=== PATIENT | male | born 1945 | race Caucasian/White ===

== ENCOUNTER 2022-01-19 12:07 | Emergency (ER) | payer MEDICARE, SELFPAY ==
[2022-01-19 12:07] VITALS: BP 128/40; PULSE 62; RESP 20; TEMP 36.7; O2SAT 97; BMI 32.5
--- NOTE | 2022-01-19 12:08 | ECG_ITS ---
APPROVED REPORT Exam: Resting ECG HR:58 bpm ECG Measurements Heart Rate 58 AXES PA 205 P 74 QRSd 110 QRS 108 QT 425 T 52 QTc 422 Conclusion SINUS BRADYCARDIA Nonsignificant Q in III ABNORMAL ECG UNCONFIRMED REPORT Electronically signed by : Kadeem Otero MD 01/19/2022 16:47:23
--- NOTE | 2022-01-19 12:16 | PC.NURSE ---
LABS COLLECTED FROM IV, NO NEEDS AT THIS TIME
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
[2022-01-19 12:27] LABS: Basophils % 0.5 % (0.1-2.0); Chloride 106 mmol/L (98-107); Eosinophils # 0.3 K/mm3 (0.0-0.4); Eosinophils % 3.2 % (0.1-12.0); Hematocrit 46.9 % (42.0-52.0); Hemoglobin 15.1 g/dL (14.1-18.0); Lymphocytes # 1.6 K/mm3 (0.7-4.5); Lymphocytes % 18.8 % (10-50); Mean Corpuscular HGB Conc 32.2 g/dL (31.8-35.4); Mean Corpuscular Hemoglobin 30.3 pg (27.0-31.2); Mean Corpuscular Volume 94.1 fl (80-94); Mean Platelet Volume 7.2 fl (7.4-10.4); Monocytes # 0.8 K/mm3 (0.1-1.0); Monocytes % 8.9 % (1.7-9.3); Neutrophils # 5.8 K/mm3 (1.8-7.8); Neutrophils % 68.6 % (37.0-80.0); Platelet Count 249 K/mm3 (142-424); Potassium 4.3 mmoL/L (3.5-5.1); Red Blood Count 4.99 M/mm3 (4.60-6.20); Red Cell Distribution Width 13.6 % (11.5-17.5); Sodium 141 mmol/L (136-145); White Blood Count 8.4 K/mm3 (4.8-10.8)
[2022-01-19 12:30] LABS: Alanine Aminotransferase 15 U/L (12-78); Albumin Level 4.1 g/dl (3.5-5.0); Albumin/Globulin Ratio 1.6 (1.1-1.8); Alkaline Phosphatase 84 U/L (38-126); Anion Gap 8.3 mEq/L (5-15); Aspartate Amino Transferase 30 U/L (17-59); Bilirubin,Total 0.9 mg/dl (0.2-1.3); Blood Urea Nitrogen 21 mg/dl (9-20); Carbon Dioxide 31 mmol/L (22.0-30.0); Creatinine Clearance Estimated 88 mL/min (50-200); Estimated Glomerular Filt Rate 65 ml/min (>60); GFR (African American) 79 ML/MIN (>60); Globulin 2.5 g/dL (1.3-3.2); Glucose 111 mg/dl (74-100); Total Protein,Serum 6.6 g/dl (6.3-8.2)
[2022-01-19 12:31] LABS: Calcium 8.8 mg/dl (8.4-10.2)
[2022-01-19 13:02] VITALS: PULSE 60; O2SAT 98
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
--- NOTE | 2022-01-19 13:13 | PC.NURSE ---
NIMESH BRITO at for patient eval
--- NOTE | 2022-01-19 13:17 | PC.NURSE ---
Contacting Dr. Wayne, patients [employer]per regarding patient care.
--- NOTE | 2022-01-19 13:18 | PC.NURSE ---
NIMESH BRITO speaking with Dr. Ceballos who is another provider in Dr. Wayne's office
--- NOTE | 2022-01-19 13:24 | PC.NURSE ---
Contacting patients PCP at this time, Dr. Grabiel Gay
[2022-01-19 13:30] VITALS: PULSE 61; O2SAT 99
--- NOTE | 2022-01-19 13:30 | PC.NURSE ---
NIMESH BRITO speaking with Dr. Dubose at this time regarding patient
[2022-01-19 13:54] LABS: Microscopic, Urine URINE MICROSCOPIC (MICROSCOPIC)
--- NOTE | 2022-01-19 13:56 | PC.NURSE ---
ER MD at speaking with patient regarding update on POC/results
[2022-01-19 13:58] LABS: Appearance,Urine CLEAR (Clear); Bilirubin,Urine Negative (Negative); Blood, Urine Negative (Negative); Color,Urine YELLOW (Yellow); Glucose,Urine (UA) Negative (Negative); Ketones,Urine Negative (Negative); Leukocyte Esterase,Urine Negative (Negative); Nitrate,Urine Negative (Negative); Protein,Urine Negative (Negative); Specific Gravity, Urine >= 1.030 (1.005-1.030); Urobilinogen,Urine 0.2 EU/dl (0.2)
[2022-01-19 14:15] VITALS: BP 116/60; PULSE 64; RESP 18; TEMP 36.7; O2SAT 98
[2022-01-19 14:21] LABS: Bacteria,Urine Trace /lpf; Mucus,Urine Trace /lpf; Squamous Epithelial Cell,Urine Occasional #/hpf (0-5)
== END 2022-01-19 14:15 | disposition home or self-care (01) ==
PROVIDERS: Emergency Provider Emergency Medicine; PCP Family Medicine
DX: R55 Syncope and collapse (principal); S80.211A Abrasion, right knee, initial encounter; V49.3XXA Car occupant (driver) (passenger) injured in unspecified nontraffic accident, initial encounter; Z79.01 Long term (current) use of anticoagulants; Z88.8 Allergy status to other drugs, medicaments and biological substances; I48.91 Unspecified atrial fibrillation
CPT/HCPCS: 70450; 71046; 72125; 72190; 73560; 80053; 81001; 85025; 93005; 99285